=== PATIENT | female | born 1950 | race Caucasian/White ===

== ENCOUNTER 2018-04-01 18:10 | Emergency (ER) | payer OTHER ==
--- NOTE | 2018-04-01 19:27 | ER Document Report ---
ED Medical Screen (RME) - General Chief Complaint: Flu Symptoms Stated Complaint: FLU LIKE SYMPTOMS Time Seen by Provider: 04/01/18 19:04 Primary Care Provider: DARIN LYNCH MD [Primary Care Provider] - Follow up as needed Notes: 67-year-old female patient with onset , 03/29/2018 of headache, body aches, cough with some clear sputum, chills, weakness, back and ribs hurt from coughing. She has been exposed to family members with the flu. Patient did get a flu shot this year. I have greeted and performed a rapid initial assessment of this patient. A comprehensive ED assessment and evaluation of the patient, analysis of test results and completion of the medical decision making process will be conducted by additional ED providers. TRAVEL OUTSIDE OF THE [place] IN LAST 30 DAYS: No - Related Data Allergies/Adverse Reactions: aspirin [Aspirin] Allergy (Verified 04/30/14 13:52) codeine [Codeine] Allergy (Verified 04/30/14 13:52) erythromycin base [Erythromycin Base] Allergy (Verified 04/30/14 13:52) ibuprofen [From Motrin] Allergy (Verified 04/30/14 13:52) latex [Latex] Allergy (Verified 04/30/14 13:52) propoxyphene HCl [From Darvon] Allergy (Verified 04/30/14 13:52) Sulfa (Sulfonamide Antibiotics) Allergy (Verified 04/30/14 13:52) doxycycline [Doxycycline] Adverse Reaction (Verified 04/30/14 13:52) Past Medical History - Social History Frequency of alcohol use: None Drug Abuse: None - Past Medical History Cardiac Medical History: Reports: Hx Coronary Artery Disease, Hx Heart Attack, Hx Hypercholesterolemia - On niacin Pulmonary Medical History: Reports: Hx Asthma, Hx Bronchitis Neurological Medical History: Reports: Hx Cerebrovascular Accident - 2 strokes Renal/ Medical History: Denies: Hx Peritoneal Dialysis Malignancy Medical History: Reports: Hx Renal (Kidney) Cancer Past Surgical History: Reports: Hx Appendectomy, Hx Breast Surgery - breast cancer surgery on R breast, Hx Hysterectomy - partial, Hx Kidney (Renal Surgery) - partial nephrectomy, Hx Oral Surgery - TMJ repair, Hx Orthopedic Surgery - left knee, rotator cuff repair - Immunizations Hx Diphtheria, Pertussis, Tetanus Vaccination: Yes Physical Exam - Vital signs Vitals: Temp Pulse Resp BP Pulse Ox 99.8 F 98 16 125/59 L 97 04/01/18 18:30 04/01/18 18:30 04/01/18 18:30 04/01/18 18:30 04/01/18 18:30 Course - Vital Signs Vital signs: Temp Pulse Resp BP Pulse Ox 99.8 F 98 16 125/59 L 97 04/01/18 18:30 04/01/18 18:30 04/01/18 18:30 04/01/18 18:30 04/01/18 18:30 Doctor's Discharge - Discharge Referrals: DARIN LYNCH MD [Primary Care Provider] - Follow up as needed
[2018-04-01 19:45] LABS: ABSOLUTE EOSINOPHILS # (AUTO) 0.1 10^3/uL (0.0-0.6); ABSOLUTE LYMPHOCYTES (AUTO) 0.9 10^3/uL (0.5-4.7); ABSOLUTE MONOCYTES (AUTO) 0.8 10^3/uL (0.1-1.4); ABSOLUTE NEUT (AUTO) 5.5 10^3/uL (1.7-8.2); BASOPHILS % (AUTO) 0.4 % (0-2); HEMATOCRIT 40.3 % (36.0-47.0); HEMOGLOBIN 13.4 g/dL (12.0-15.5); LYMPHOCYTES % (AUTO) 12.7 % (13-45); MEAN CORPUSCULAR HEMOGLOBIN 27.9 pg (27.0-33.4); MEAN CORPUSCULAR HGB CONC 33.2 g/dL (32.0-36.0); MEAN CORPUSCULAR VOLUME 84 fl (80-97); MONOCYTES % (AUTO) 11.1 % (3-13); PLATELET COUNT 312 10^3/uL (150-450); RED CELL DISTRIBUTION WIDTH 14.3 % (11.5-14.0); SEGMENTED NEUTROPHILS % (AUTO) 74.8 % (42-78); TOTAL CELLS COUNTED % (AUTO) 100 %; WHITE BLOOD COUNT 7.4 10^3/uL (4.0-10.5)
[2018-04-01 19:59] LABS: A TYPE INFLUENZA AG NEGATIVE (NEGATIVE); B INFLUENZA AG NEGATIVE (NEGATIVE)
[2018-04-01 20:01] LABS: ALANINE AMINOTRANSFERASE 126 U/L (9-52); ALBUMIN 4.4 g/dL (3.5-5.0); ALKALINE PHOSPHATASE 900 U/L (38-126); ANION GAP 7 (5-19); ASPARTATE AMINO TRANSFERASE 123 U/L (14-36); BILIRUBIN,DIRECT 0.6 mg/dL (0.0-0.4); BLOOD UREA NITROGEN 14 mg/dL (7-20); CALCIUM 10.2 mg/dL (8.4-10.2); CARBON DIOXIDE 31 mmol/L (22-30); CHLORIDE 99 mmol/L (98-107); CREATINE KINASE 26 U/L (30-135); GLUCOSE 105 mg/dL (75-110); POTASSIUM 4.4 mmol/L (3.6-5.0); SODIUM 137.2 mmol/L (137-145); TOTAL PROTEIN 7.1 g/dL (6.3-8.2)
--- NOTE | 2018-04-01 20:05 | RADIOLOGY REPORT (SQ) ---
EXAM DESCRIPTION: XR CHEST 2 VIEWS COMPLETED DATE/TME: 04/01/2018 19:25 CLINICAL HISTORY: 67 years, Female, Cough congested chills COMPARISON: 08/21/2013 chest NUMBER OF VIEWS: 2 TECHNIQUE: Frontal and lateral views of the chest LIMITATIONS: None. FINDINGS: Heart size is normal. Surgical clips project over the right hemithorax. Osteopenia. Lungs are clear. No pneumothorax IMPRESSION: No acute cardiopulmonary process copyright 2010 [employer]- All Rights Reserved
--- NOTE | 2018-04-01 20:06 | ER Document Report ---
ED General - General Chief Complaint: Flu Symptoms Stated Complaint: FLU LIKE SYMPTOMS Time Seen by Provider: 04/01/18 19:04 Primary Care Provider: DARIN LYNCH MD [NO LOCAL MD] - Follow up as needed Notes: Patient is a 67-year-old female that comes to the emergency department for chief complaint of 3 days of symptoms of cough, chills, body aches, headaches, pain hurts when she coughs, and she states that today she also developed a burning with urination. She reports intermittent mild abdominal pain. She denies vomiting, fever. Past medical history includes asthma but she states she has not needed albuterol at home. Remaining medical history includes CAD, hyperlipidemia, CVA, both kidney and breast cancer in remission according to patient, has received chemo previously. She has had the flu vaccine. She has been exposed to multiple sick family members, she states they were told they had the flu, she is not sure if they tested positive or not. TRAVEL OUTSIDE OF THE [place] IN LAST 30 DAYS: No - Related Data Allergies/Adverse Reactions: aspirin [Aspirin] Allergy (Verified 04/30/14 13:52) codeine [Codeine] Allergy (Verified 04/30/14 13:52) erythromycin base [Erythromycin Base] Allergy (Verified 04/30/14 13:52) ibuprofen [From Motrin] Allergy (Verified 04/30/14 13:52) latex [Latex] Allergy (Verified 04/30/14 13:52) propoxyphene HCl [From Darvon] Allergy (Verified 04/30/14 13:52) Sulfa (Sulfonamide Antibiotics) Allergy (Verified 04/30/14 13:52) doxycycline [Doxycycline] Adverse Reaction (Verified 04/30/14 13:52) Past Medical History - General Information source: Patient - Social History Smoking Status: Never Smoker Frequency of alcohol use: None Drug Abuse: None Lives with: Family Family History: None Patient has suicidal ideation: No Patient has homicidal ideation: No - Past Medical History Cardiac Medical History: Reports: Hx Coronary Artery Disease, Hx Heart Attack, Hx Hypercholesterolemia - On niacin Pulmonary Medical History: Reports: Hx Asthma, Hx Bronchitis Neurological Medical History: Reports: Hx Cerebrovascular Accident - 2 strokes Renal/ Medical History: Denies: Hx Peritoneal Dialysis Malignancy Medical History: Reports: Hx Renal (Kidney) Cancer Past Surgical History: Reports: Hx Appendectomy, Hx Breast Surgery - breast cancer surgery on R breast, Hx Hysterectomy - partial, Hx Kidney (Renal Surgery) - partial nephrectomy, Hx Oral Surgery - TMJ repair, Hx Orthopedic Surgery - left knee, rotator cuff repair - Immunizations Hx Diphtheria, Pertussis, Tetanus Vaccination: Yes Hx Pneumococcal Vaccination: 12/04/12 Review of Systems - Review of Systems Constitutional: See HPI EENT: See HPI Cardiovascular: No symptoms reported Respiratory: See HPI Gastrointestinal: See HPI Genitourinary: No symptoms reported Female Genitourinary: No symptoms reported Musculoskeletal: See HPI Skin: No symptoms reported Hematologic/Lymphatic: No symptoms reported Neurological/Psychological: No symptoms reported Physical Exam - Vital signs Vitals: Temp Pulse Resp BP Pulse Ox 99.8 F 98 16 125/59 L 97 04/01/18 18:30 04/01/18 18:30 04/01/18 18:30 04/01/18 18:30 04/01/18 18:30 - Notes Notes: GENERAL: Alert, interacts well. No acute distress. HEAD: Normocephalic, atraumatic. EYES: Pupils equal, round, and reactive to light. Extraocular movements intact. ENT: Oral mucosa moist, tongue midline. Oropharynx unremarkable. Airway patent. Mild congestion, no nasal septal hematoma, TM's intact. NECK: Full range of motion. Supple. Trachea midline. LUNGS: Clear to auscultation bilaterally, no wheezes, rales, or rhonchi. No respiratory distress. Occasional congested sounding cough. No tachypnea, no labored breathing. HEART: Regular rate and rhythm. No murmur ABDOMEN: Minimal generalized tenderness, nonspecific, no guarding, no rigidity, no distention. GENITOURINARY: Deferred EXTREMITIES: Moves all 4 extremities spontaneously. No edema, normal radial and dorsalis pedis pulses bilaterally. No cyanosis. BACK: no cervical, thoracic, lumbar midline tenderness. No saddle anesthesia, normal distal neurovascular exam. NEUROLOGICAL: Alert and oriented x3. Normal speech. [cranial nerves II through XII grossly intact]. PSYCH: Normal affect, normal mood. SKIN: Warm, dry, normal turgor. No rashes or lesions noted. Course - Re-evaluation Re-evalutation: Patient is well-appearing and alert, vital signs are unremarkable. She has some congestion, mild congested cough, unremarkable physical exam otherwise. CBC unremarkable, urinalysis unremarkable, chest x-ray unremarkable, influenza negative. Troponin negative. History showing mildly elevated LFTs, borderline direct bilirubin, very elevated alk phos. I do not have recent alk phos measurement, current one is 900, last one was in 2014 and normal. Patient is unable to tell me if she has had this elevated in the past. Patient does have a history of renal and breast cancer without metastasis, not on treatment for it, never had a history of bony metastasis. Discussed with patient. Decision was made to start with ultrasound, this was performed but was unremarkable for any acute findings. Patient will be referred with a copy for chemistry to her primary care for additional testing and very close follow-up. I discussed the importance of this and the possibilities. I discussed with Dr. Davis. I discussed patient's cold symptoms. She states she has a history of asthma, has not required her albuterol, declined prednisone. After discussion decision was made to not use antibiotics because of her viral symptoms without evidence or suspicion of pneumonia. Discussed return precautions in detail with patient as well as home therapy. Patient states understanding and agreement. - Vital Signs Vital signs: Temp Pulse Resp BP Pulse Ox 99.4 F 94 16 140/59 H 100 04/01/18 22:35 04/01/18 22:35 04/01/18 22:35 04/01/18 22:35 04/01/18 22:35 - Laboratory Result Diagrams: 04/01/18 19:30 04/01/18 19:30 Laboratory results interpreted by me: 04/01/18 04/01/18 19:30 19:30 RDW 14.3 H Lymphocytes % 12.7 L Carbon Dioxide 31 H Direct Bilirubin 0.6 H AST 123 H ALT 126 H Alkaline Phosphatase 900 H Creatine Kinase 26 L Discharge - Discharge Clinical Impression: Cough, Generalized body aches Upper respiratory infection Qualifiers: URI type: unspecified URI Qualified Code(s): J06.9 - Acute upper respiratory infection, unspecified Condition: Stable Disposition: HOME, SELF-CARE Additional Instructions: Your influenza test is negative. Your chest x-ray does not show any concerning a normality. Your urinalysis does not show infection. Evaluation is consistent with an upper respiratory virus, this should resolve with time. You can use albuterol, take ndmv-mam-tngjciv medications such as Tylenol, Claritin antihistamine, nasal spray for congestion, etc. Your general workup is reassuring except that your alkaline phosphatase laboratory level is very elevated. Your ultrasound does not show any concerning findings, therefore I am concerned this could be from a bony source. Please perform close follow-up with your provider for additional testing/imaging to exclude a bony abnormality or cancer. Return for any concerning or worsening symptoms including rapid or labored breathing, spiking fever, severe abdominal pain, or any other concerning or worsening symptoms. Referrals: DARIN LYNCH MD [NO LOCAL MD] - Follow up as needed
[2018-04-01 20:13] LABS: CREATINE KINASE MB < 0.22 ng/mL (<4.55); TROPONIN I < 0.012 ng/mL
[2018-04-01 21:11] LABS: APPEARANCE,URINE CLEAR; BILIRUBIN,URINE NEGATIVE (NEGATIVE); COLOR,URINE YELLOW; GLUCOSE, URINE NEGATIVE (NEGATIVE); KETONES,URINE NEGATIVE (NEGATIVE); LEUKOCYTE ESTERASE,URINE NEGATIVE (NEGATIVE); NITRITE,URINE NEGATIVE (NEGATIVE); PROTEIN,URINE NEGATIVE (NEGATIVE); URINE SPECIFIC GRAVITY 1.009; UROBILINOGEN,URINE NEGATIVE mg/dL (<2.0)
[2018-04-01 22:36] VITALS: BP 140/59
--- NOTE | 2018-04-01 22:52 | RADIOLOGY REPORT (SQ) ---
EXAM DESCRIPTION: US ABDOMEN LIMITED COMPLETED DATE/TME: 04/01/2018 21:23 CLINICAL HISTORY: 67 years, Female, abd pain, elev LFT/bili/alk phos COMPARISON: None. TECHNIQUE: Limited right upper quadrant ultrasound LIMITATIONS: None. FINDINGS: The liver is homogenous in echotexture without focal lesion. Status post cholecystectomy. CBD measures 9 mm. This may be a function of post cholecystectomy state. Visualized pancreas, abdominal aorta, right kidney are unremarkable. No ascites. IMPRESSION: Status post cholecystectomy. Prominence of the CBD at 9 mm. This may be a function of postcholecystectomy state copyright 2010 [employer]- All Rights Reserved
--- NOTE | 2018-04-02 07:26 | EKG REPORT ---
SEVERITY:- NORMAL ECG - SINUS RHYTHM : Confirmed by: Danette Sharp MD 02-Apr-2018 07:25:30
== END 2018-04-01 23:33 | disposition home or self-care (01) ==
LOC: ER 18:10
DX: J06.9 Acute upper respiratory infection, unspecified (principal); M79.10 Myalgia, unspecified site; R05 Cough; R51 Headache; R30.0 Dysuria; I25.10 Atherosclerotic heart disease of native coronary artery without angina pectoris; E78.5 Hyperlipidemia, unspecified; Z86.73 Personal history of transient ischemic attack (TIA), and cerebral infarction without residual deficits; Z85.3 Personal history of malignant neoplasm of breast; Z85.528 Personal history of other malignant neoplasm of kidney; Z88.6 Allergy status to analgesic agent; Z88.2 Allergy status to sulfonamides; Z91.040 Latex allergy status
CPT/HCPCS: 36415; 71046; 76705; 80053; 81001; 82550; 82553; 84484; 85025; 87804; 93005; 93010; 99284

== ENCOUNTER 2020-01-17 17:07 | Emergency (ER) | payer OTHER ==
--- NOTE | 2020-01-17 18:54 | RADIOLOGY REPORT (SQ) ---
EXAM DESCRIPTION: CT HEAD WITHOUT IMAGES COMPLETED DATE/TIME: 01/17/2020 6:42 pm REASON FOR STUDY: mechanical fall COMPARISON: None. TECHNIQUE: Axial images acquired through the brain without intravenous contrast. Images reviewed wi th bone, brain and subdural windows. Additional sagittal and coronal reconstructions were generated. Images stored on PACS. All CT scanners at this facility use dose modulation, iterative reconstruction, and/or weight based d osing when appropriate to reduce radiation dose to as low as reasonably achievable (ALARA). [facility]: Dose Right [facility]: CareDose [facility]: Dose Right [facility]: Teradose 4D [facility]: Smart [employer] RADIATION DOSE: CT Rad equipment meets quality standard of care and radiation dose reduction techniq ues were employed. CTDIvol: 53.2 mGy. DLP: 964 mGy-cm. mGy. LIMITATIONS: None. FINDINGS: VENTRICLES: Normal size and contour. CEREBRUM: No masses. No hemorrhage. No midline shift. No evidence for acute infarction. Normal gra y/white matter differentiation. No areas of low density in the white matter. CEREBELLUM: No masses. No hemorrhage. No alteration of density. No evidence for acute infarction. EXTRAAXIAL SPACES: No fluid collections. No masses. ORBITS AND GLOBE: No intra- or extraconal masses. Normal contour of globe without masses. CALVARIUM: No fracture. PARANASAL SINUSES: No fluid or mucosal thickening. SOFT TISSUES: No mass or hematoma. OTHER: No other significant finding. IMPRESSION: NORMAL BRAIN CT WITHOUT CONTRAST. EVIDENCE OF ACUTE STROKE: NO. COMMENT: Quality ID # [id number]: Final reports with documentation of one or more dose reduction techniques (e.g., Automated exposure control, adjustment of the mA and/or kV according to patient size, use of iterative reconstruction technique) TECHNICAL DOCUMENTATION: JOB ID: [id number] 2010 [employer]- All Rights Reserved Reading location - IP/workstation name: [email or web address]
--- NOTE | 2020-01-17 18:56 | RADIOLOGY REPORT (SQ) ---
EXAM DESCRIPTION: FOOT RIGHT COMPLETE IMAGES COMPLETED DATE/TIME: 01/17/2020 5:27 pm REASON FOR STUDY: mechanical fall. Pain. COMPARISON: None. NUMBER OF VIEWS: Three views. TECHNIQUE: AP, lateral and oblique radiographic images acquired of the right foot. LIMITATIONS: None. FINDINGS: MINERALIZATION: Osteopenia. BONES: No acute fracture or cortical disruption. Small marginal osteophytes at the DIP and PIP joint s. Small plantar calcaneal spur. JOINTS: No effusions. SOFT TISSUES: No soft tissue swelling. No foreign body. OTHER: No other significant finding. IMPRESSION: No acute fracture or dislocation of the right foot. 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 Small plantar calcaneal spur which can be seen with plantar fasciitis. TECHNICAL DOCUMENTATION: JOB ID: [id number] 2010 [employer]- All Rights Reserved Reading location - IP/workstation name: [email or web address]
--- NOTE | 2020-01-17 18:57 | RADIOLOGY REPORT (SQ) ---
EXAM DESCRIPTION: HAND RIGHT 3 VIEWS IMAGES COMPLETED DATE/TIME: 01/17/2020 5:27 pm REASON FOR STUDY: mechanical fall. Pain. COMPARISON: None. EXAM PARAMETERS: NUMBER OF VIEWS: Three views. TECHNIQUE: AP, lateral and oblique radiographic images acquired of the right hand. LIMITATIONS: None. FINDINGS: MINERALIZATION: Normal. BONES: No acute fracture or dislocation. No worrisome bone lesions. JOINTS: No effusions. SOFT TISSUES: No soft tissue swelling. No foreign body. OTHER: No other significant finding. IMPRESSION: NEGATIVE STUDY OF THE RIGHT HAND. NO RADIOGRAPHIC EVIDENCE OF ACUTE INJURY. TECHNICAL DOCUMENTATION: JOB ID: [id number] 2010 [employer]- All Rights Reserved Reading location - IP/workstation name: [email or web address]
--- NOTE | 2020-01-17 19:08 | RADIOLOGY REPORT (SQ) ---
EXAM DESCRIPTION: CT CERVICAL SPINE WITHOUT IMAGES COMPLETED DATE/TIME: 01/17/2020 6:42 pm REASON FOR STUDY: mechanical fall COMPARISON: None. TECHNIQUE: Axial images acquired through the cervical spine without intravenous contrast. Images re viewed with lung, soft tissue and bone windows. Reconstructed coronal and sagittal MPR images review ed. Images stored on PACS. All CT scanners at this facility use dose modulation, iterative reconstruction, and/or weight based d osing when appropriate to reduce radiation dose to as low as reasonably achievable (ALARA). [facility]: Dose Right [facility]: CareDose [facility]: Dose Right [facility]: Teradose 4D [facility]: Smart [employer] RADIATION DOSE: CT Rad equipment meets quality standard of care and radiation dose reduction techniq ues were employed. CTDIvol: 8.5 mGy. DLP: 154 mGy-cm. mGy. LIMITATIONS: None. FINDINGS: ALIGNMENT: Anatomic. MINERALIZATION: Normal. VERTEBRAL BODIES: No fractures or dislocation. DISCS: Discs are narrowed from C4-C6 with small marginal osteophytes. FACETS, LATERAL MASSES, POSTERIOR ELEMENTS: Hypertrophic facet changes on the left in the lower cervi markell spine. HARDWARE: None in the spine. VISUALIZED RIBS: No fractures. LUNG APICES AND SOFT TISSUES: No significant or acute findings. OTHER: No other significant finding. IMPRESSION: Degenerative disc disease, spondylosis, and facet arthropathy. TECHNICAL DOCUMENTATION: JOB ID: [id number] Quality ID # [id number]: Final reports with documentation of one or more dose reduction techniques (e.g., Au tomated exposure control, adjustment of the mA and/or kV according to patient size, use of iterative reconstruction technique) 2010 [employer]- All Rights Reserved Reading location - IP/workstation name: [email or web address]
--- NOTE | 2020-01-17 19:38 | ER Document Report ---
HPI - HPI Time Seen by Provider: 01/17/20 17:51 Context: Patient is a 69-year-old female presents emergency department with a chief complaint of right foot pain, back pain, and right hand pain. Patient tripped over some west that was in a box. Denies any loss of consciousness, that she knows of. She states that she was walking around all day. - ROS Systems Reviewed and Negative: Yes All other systems reviewed and negative - CONSTITUTIONAL Constitutional: DENIES: Fever, Chills - EENT EENT: DENIES: Sore Throat, Ear Pain - REPRODUCTIVE Reproductive: DENIES: : - MUSCULOSKELETAL Musculoskeletal: REPORTS: Extremity pain - Right foot and right hand., Back Pain - Right low - DERM Skin Color: Normal Skin Problems: None Past Medical History - General Information source: Patient - Social History Smoking Status: Unknown if Ever Smoked Family History: None - Past Medical History Cardiac Medical History: Reports: Hx Coronary Artery Disease, Hx Heart Attack, Hx Hypercholesterolemia - On niacin Pulmonary Medical History: Reports: Hx Asthma, Hx Bronchitis Neurological Medical History: Reports: Hx Cerebrovascular Accident - 2 strokes Renal/ Medical History: Denies: Hx Peritoneal Dialysis Malignancy Medical History: Reports: Hx Renal (Kidney) Cancer Past Surgical History: Reports: Hx Appendectomy, Hx Breast Surgery - breast cancer surgery on R breast, Hx Hysterectomy - partial, Hx Kidney (Renal Surgery) - partial nephrectomy, Hx Oral Surgery - TMJ repair, Hx Orthopedic Surgery - left knee, rotator cuff repair - Immunizations Hx Diphtheria, Pertussis, Tetanus Vaccination: Yes Hx Pneumococcal Vaccination: 12/04/12 Vertical Provider Document - CONSTITUTIONAL Agree With Documented VS: Yes Exam Limitations: No Limitations General Appearance: No Apparent Distress - INFECTION CONTROL TRAVEL OUTSIDE OF THE [place] IN LAST 30 DAYS: No - HEENT HEENT: Atraumatic, Normocephalic, PERRLA - NECK Neck: Normal Inspection - RESPIRATORY Respiratory: Breath Sounds Normal, No Respiratory Distress - CARDIOVASCULAR Cardiovascular: Regular Rate, Regular Rhythm Pulses: Normal: Radial, Posterior tibial, Dorsalis pedis - MUSCULOSKELETAL/EXTREMETIES Musculoskeletal/Extremeties: FROM, Tender - right hand; right foot - NEURO Level of Consciousness: Awake, Alert, Appropriate Motor/Sensory: No Motor Deficit, No Sensory Deficit - DERM Integumentary: Warm, Dry, No Rash Course - Re-evaluation Re-evalutation: 01/18/20 Foot x-ray is unremarkable. The patient does have some bone spurs noted. CT of the head and lumbar spine show chronic changes and is unremarkable. X-ray of the hand is normal. There is no tenderness at the anatomical snuffbox area. No concern for scaphoid fracture. Will place patient in a splint and I recommended that the patient get a sole insert for plantar fasciitis. Also refer the patient to Dr. Zhao for follow-up. She is in agreement with this plan. Patient would only like to take Tylenol for pain relief. Capillary refill less than 3 seconds. Dorsalis pedis and posterior tibial pulses 2+. No vascular compromise noted. Capillary refill less than 3 seconds. Radial pulse 2+. No vascular compromise noted. Follow-up precautions were given. Verbal discharge instructions were given to the patient. They verbalized understanding. They are stable for discharge. - Vital Signs Vital signs: Temp Pulse Resp BP Pulse Ox 98.1 F 72 16 142/61 H 100 01/17/20 17:34 01/17/20 17:34 01/17/20 17:34 01/17/20 17:34 01/17/20 17:34 Discharge - Discharge Clinical Impression: Plantar fasciitis of right foot Fall Qualifiers: Encounter type: initial encounter Qualified Code(s): W19.XXXA - Unspecified fall, initial encounter Condition: Stable Disposition: HOME, SELF-CARE Additional Instructions: You were seen today in the emergency department after a fall. Your x-ray shows that you have some bone spurs in your foot. You also have plantar fasciitis. Please rest, apply ice as needed, and elevate your foot to help with swelling. You can buy inserts for plantar fasciitis to help you with with walking around. Referrals: JAVED ZHAO JR, DO [ACTIVE PROVISIONAL STAFF] - Follow up as needed
[2020-01-17 19:56] VITALS: BP 142/63
== END 2020-01-17 20:07 | disposition home or self-care (01) ==
LOC: ER 17:07
DX: M72.2 Plantar fascial fibromatosis (principal); M79.671 Pain in right foot; M54.9 Dorsalgia, unspecified; M79.641 Pain in right hand; W19.XXXA Unspecified fall, initial encounter; E78.00 Pure hypercholesterolemia, unspecified; Z86.73 Personal history of transient ischemic attack (TIA), and cerebral infarction without residual deficits; I25.2 Old myocardial infarction
CPT/HCPCS: 70450; 72125; 99284